=== PATIENT | female | born 1950 | race Caucasian/White ===

== ENCOUNTER 2021-04-29 08:52 | Inpatient (IN) | payer MEDICARE ==
[~2021-04-29 08:52] MED LIST: Rocuronium Bromide 10 MG/ML (10ML VIAL) ONE
[2021-04-29] MEDS ORDERED: Fentanyl 100 MCG/2 ML VIAL ONE ×2 (09:01→10:30)
[2021-04-29] MEDS ORDERED: Norepinephrine 8 MG/0.9% NS 250 ML ONE ×2 (09:12→17:13)
[2021-04-29 10:13] LABS: SARS-CoV-2 NAA Rapid Test Not Detected (NotDetected)
[2021-04-29 10:15] LABS: Hemoglobin 12.3 g/dL (12.0-15.5); Mean Corpuscular HGB CONC 30.2 g/dL (32.0-36.0); Mean Corpuscular Hemoglobin 28.6 pg (27.0-33.0); Mean Corpuscular Volume 94.7 fl (81.6-98.3); Mean Platelet Volume 10.4 fl (7.4-10.4); Platelet Count 324 10x3/uL (150-450); RBC Distribution Width 14.7 % (11.5-14.5); White Blood Cell (WBC) Count 25.8 10x3/uL (3.5-10.5)
[2021-04-29] MEDS ORDERED: Cefepime 2 GM VIAL ONE (10:23)
[2021-04-29 10:26] LABS: INR-International Normal Ratio 1.1; PTT 28.7 sec (22.0-33.0); Prothrombin Time 12.1 sec (9.5-12.1)
[2021-04-29 10:29] LABS: ALT (SGPT) 141 U/L (8-55); AST (SGOT) 243 U/L (5-34); Albumin 2.6 g/dL (3.4-4.8); Alkaline Phosphatase 148 U/L (40-110); Anion Gap 18 mmol/L (10-20); BUN (Urea Nitrogen) 21 mg/dL (9.8-20.1); Bilirubin, Total 0.6 mg/dL (0.2-1.2); Calc. Creatinine Clearance 0 mL/min (70-130); Calcium 9.1 mg/dL (7.8-10.44); Carbon Dioxide 20 mmol/L (23-31); Chloride 105 mmol/L (98-107); Globulin 3.1 g/dL (2.4-3.5); Glucose 239 mg/dL (83-110); Potassium 4.8 mmol/L (3.5-5.1); Protein, Total 5.7 g/dL (5.8-8.1); Sodium 138 mmol/L (136-145)
[2021-04-29] MEDS ORDERED: VANCOMYCIN 2 GRAM/400 ML BAG 2 GM in Premix Bag 1 BAG IVPB SCH (11:00)
[2021-04-29 11:04] LABS: MDiff Complete? YES
[2021-04-29 11:07] LABS: Band 6 % (5-11); Lymphocytes 22 % (21-51); Monocytes 5 % (0-10); Neutrophil 67 % (42-75)
[2021-04-29 11:08] LABS: Platelet Morphology Comment Appears Adequate; RBC Morphology Normal
[2021-04-29 11:43] LABS: Magnesium 2.2 mg/dL (1.6-2.6)
[2021-04-29 12:16] LABS: Actual Bicarbonate (HCO3a) 20.2 mEq/L (22-28); Base Excess (BEa) -7.9 mEq/L (-2.0 to +3.0); CO2 Tension 51.4 mmHg (35.0-45.0); Calcium, Ionized (arterial) 1.26 mmol/L (1.12-1.30); Carboxyhemoglobin (COHb) 0.1 gm% (0.0-3.0); Hemoglobin (Hb) 13.7 g/dL (12.0-16.0); O2 Tension (PaO2), arterial 141.7 mmHg (> 70.0); Potassium - ABG Lab 4.6 mmol/L (3.70-5.30); Puncture Site RRA; pH, Arterial 7.21 (7.35-7.45)
[2021-04-29] MEDS: Amiodarone In Dextrose 360 MG in Premix Bag 1 BAG IVPB SCH ×2 (12:54→18:29)
[2021-04-29] MEDS ORDERED: Ventilator Sedation Protocol 1 EACH FS PRN (13:00)
[2021-04-29] MEDS ORDERED: Electrolyte Replacement Protocol 1 EACH IVPB PRN (13:00)
[2021-04-29] MEDS ORDERED: DISCONTINUE PREVIOUS NARCOTIC PAIN MEDICATIONS AND BENZODIAZEPINES FS SCH (13:15)
[2021-04-29] MEDS ORDERED: Fentanyl BOLUS 250 ML IVPB PRN (13:15)
[2021-04-29] MEDS ORDERED: Propofol 1,000 MG/100 ML VIAL IV PRN (13:15)
[2021-04-29] MEDS ORDERED: Propofol BOLUS 1,000 MG/100 ML VIAL IV PRN (13:15)
[2021-04-29] MEDS ORDERED: Lorazepam 2 MG/ML VIAL SLOW IVP PRN (13:15)
[2021-04-29] MEDS ORDERED: Morphine 2 MG/ML VIAL SLOW IVP PRN (13:15)
[2021-04-29 13:30] LABS: Lactic Acid 2.3 mmol/L (0.5-2.2)
[2021-04-29] MEDS: fentaNYL Citrate-0.9 % NaCl/PF 100 ML IVPB SCH (13:30)
[2021-04-29 13:44] LABS: Troponin I 0.654 ng/mL (< 0.028)
[2021-04-29 14:56] LABS: Free T4 (Free Thyroxine) 0.89 ng/dL (0.70-1.48); Thyroid Stimulating Hormone 2.7725 uIU/mL (0.35-4.94)
[2021-04-29] MEDS ORDERED: EPINEPHrine 1 MG/10 ML Abboject SYRINGE ONE (14:56)
[2021-04-29] MEDS ORDERED: Amiodarone 150 MG/3 ML VIAL ONE (14:56)
[2021-04-29] MEDS ORDERED: Calcium Chloride 1 GM/10 ML Abboject SYRINGE ONE (14:56)
[2021-04-29] MEDS ORDERED: Aspirin Chewable 81 MG TAB PER TUBE SCH (15:00)
[2021-04-29] MEDS ORDERED: Piperacillin/Tazobactam 3.375 GM in Sodium Chloride 0.9% 100 ML IVPB SCH (16:00)
[2021-04-29] MEDS ORDERED: Lactated Ringer's 1,000 ML IV SCH ×2 (17:30)
[2021-04-29 17:59] LABS: Bilirubin Neg (Negative); Blood, Urine 250 (Negative); Clarity Slightly Cloudy (Clear); Glucose, Urine (Dipstick) 50 mg/dL (Negative); Ketone, Urine Negative (Negative); Leukocyte 100 (Negative); Nitrite Negative (Negative); Protein, Urine (Dipstick) 100 mg/dl (Neg-Trace); Specific Gravity, Urine 1.015 (1.002-1.036); Urobilinogen Normal mg/dL (Less than 2)
[2021-04-29 18:06] LABS: Urine Culture Reflex No No
[2021-04-29 18:07] LABS: Amphetamine Not Detected (NotDetected); Barbiturates Screen Not Detected (NotDetected); Benzodiazepine Screen Not Detected (NotDetected); Cocaine Metabolite Screen Not Detected (NotDetected); Methadone Not Detected (NotDetected); Methamphetamine Not Detected (NotDetected); Opiate Screen Not Detected (NotDetected); Oxycodone Screen Not Detected (NotDetected); Phencyclidine (PCP) Not Detected (NotDetected); THC/Cannabinoid Screen Not Detected (NotDetected); Tricyclic Screen Not Detected (NotDetected)
[2021-04-29 18:31] LABS: Squamous Epithelial 0-3 HPF (0-3)
[2021-04-29 18:34] LABS: Bacteria/HPF Rare-Few HPF (None Seen)
[2021-04-29] MEDS ORDERED: Heparin 10,000 UNITS/ 10 ML VIAL SLOW IVP SCH (19:00)
[2021-04-29] MEDS ORDERED: Famotidine/PF 20 mg/2ml Vial SLOW IVP SCH (21:00)
[2021-04-29] MEDS: Piperacillin/Tazobactam 3.375 GM in Sodium Chloride 0.9% 100 ML IVPB SCH (21:04)
[2021-04-29 21:40] LABS: Hemoglobin 13.3 g/dL (12.0-15.5); Platelet Count 362 10x3/uL (150-450)
[2021-04-29] MEDS ORDERED: Piperacillin/Tazobactam 4.5 GM in Sodium Chloride 0.9% 100 ML IVPB SCH (22:00)
[2021-04-29] MEDS: Heparin 25,000 units/D5W 500 ML IVPB SCH (22:21)
[2021-04-30 03:07] LABS: PTT Greater than 139.0 sec (22.0-33.0)
[2021-04-30 03:34] LABS: #Neutrophils 15.8 10x3/uL (1.5-8.4); %Basophils 0.1 % (0.0-2.0); %Lymphocytes 5.7 % (18.0-47.0); %Monocytes 5.4 % (0.0-10.0); %Neutrophils 88.4 % (40.0-75.0); Hemoglobin 13.1 g/dL (12.0-15.5); Mean Corpuscular HGB CONC 30.8 g/dL (32.0-36.0); Mean Corpuscular Hemoglobin 28.2 pg (27.0-33.0); Mean Corpuscular Volume 91.6 fl (81.6-98.3); Mean Platelet Volume 10.2 fl (7.4-10.4); Platelet Count 358 10x3/uL (150-450); RBC Distribution Width 14.9 % (11.5-14.5); Red Blood Cell (RBC) Count 4.65 10x6/uL (3.90-5.03); White Blood Cell (WBC) Count 17.9 10x3/uL (3.5-10.5)
[2021-04-30 03:57] LABS: ALT (SGPT) 158 U/L (8-55); AST (SGOT) 139 U/L (5-34); Albumin 2.8 g/dL (3.4-4.8); Alkaline Phosphatase 170 U/L (40-110); Anion Gap 21 mmol/L (10-20); BUN (Urea Nitrogen) 40 mg/dL (9.8-20.1); Bilirubin, Total 0.7 mg/dL (0.2-1.2); Calc. Creatinine Clearance 42 mL/min (70-130); Calcium 8.1 mg/dL (7.8-10.44); Carbon Dioxide 20 mmol/L (23-31); Cardiac Risk 2.9 (Less than 4.5); Chloride 105 mmol/L (98-107); Cholesterol 96 mg/dl (< 200 Desired); Globulin 3.2 g/dL (2.4-3.5); Glucose 193 mg/dL (83-110); HDL Cholesterol 33 mg/dL (>60 Neg Risk); LDL Cholesterol, Calculated 48 mg/dL; Magnesium 2.1 mg/dL (1.6-2.6); Phosphorus 6.1 mg/dL (2.3-4.7); Potassium 5.6 mmol/L (3.5-5.1); Sodium 140 mmol/L (136-145); Triglycerides 73 mg/dL (Less than 150)
[2021-04-30] MEDS: Piperacillin/Tazobactam 3.375 GM in Sodium Chloride 0.9% 100 ML IVPB SCH (05:12)
[2021-04-30] MEDS: Amiodarone In Dextrose 360 MG in Premix Bag 1 BAG IVPB SCH ×2 (05:42→16:33)
[2021-04-30] MEDS: fentaNYL Citrate-0.9 % NaCl/PF 100 ML IVPB SCH (05:42)
[2021-04-30] MEDS: Norepinephrine 8 MG/0.9% NS 250 ML IVPB SCH ×2 (06:27→16:32)
[2021-04-30 08:15] LABS: Actual Bicarbonate (HCO3a) 21.2 mEq/L (22-28); CO2 Tension 48.1 mmHg (35.0-45.0); Carboxyhemoglobin (COHb) 0.4 gm% (0.0-3.0); Hemoglobin (Hb) 13.9 g/dL (12.0-16.0); O2 Tension (PaO2), arterial 81.8 mmHg (> 70.0); Puncture Site LBA; pH, Arterial 7.26 (7.35-7.45)
[2021-04-30 08:19] LABS: ALV-art Gradient 107.625 mmHg (0-20)
[2021-04-30] MEDS ORDERED: Aspirin Chewable 81 MG TAB PER TUBE SCH (09:00)
[2021-04-30] MEDS ORDERED: Albumin 25% 25 GM/100 ML BOT IVPB SCH (09:00)
[2021-04-30] MEDS ORDERED: Sodium Chloride 0.9% 1,000 ML IV SCH (11:00)
[2021-04-30 11:27] LABS: Hemoglobin A1c 5.4 % (4.0-6.0)
[2021-04-30 12:17] LABS: Anion Gap 18 mmol/L (10-20); BUN (Urea Nitrogen) 43 mg/dL (9.8-20.1); Calc. Creatinine Clearance 36 mL/min (70-130); Calcium 7.8 mg/dL (7.8-10.44); Carbon Dioxide 21 mmol/L (23-31); Chloride 104 mmol/L (98-107); Glucose 158 mg/dL (83-110); Potassium 4.8 mmol/L (3.5-5.1); Sodium 138 mmol/L (136-145)
[2021-04-30] MEDS ORDERED: Lactated Ringer's 1,000 ML IV SCH (12:30)
[2021-04-30 12:36] LABS: Troponin I 0.471 ng/mL (< 0.028)
[2021-04-30] MEDS ORDERED: Heparin 10,000 UNITS/ 10 ML VIAL SLOW IVP PRN (12:45)
[2021-04-30] MEDS: Sodium Chloride 0.45% 1,000 ML IV SCH (13:30)
[2021-04-30] MEDS: Cefepime 2 GM in Sodium Chloride 0.9% 100 ML IVPB SCH (14:52)
[2021-04-30] MEDS: Heparin 25,000 units/D5W 500 ML IVPB SCH (18:28)
[2021-04-30 18:44] LABS: PTT Greater than 139.0 sec (22.0-33.0)
[2021-04-30] MEDS: Famotidine/PF 20 mg/2ml Vial SLOW IVP SCH (20:15)
[2021-04-30] MEDS ORDERED: Acetaminophen 325 MG TAB PO PRN (21:40)
[2021-04-30] MEDS ORDERED: traMADol HCl 50 MG TAB PO PRN (21:40)
[2021-04-30] MEDS ORDERED: Morphine 4 MG/ML VIAL SLOW IVP SCH (22:45)
[2021-05-01 04:00] LABS: Troponin I 0.203 ng/mL (< 0.028)
[2021-05-01 04:20] LABS: ALT (SGPT) 86 U/L (8-55); AST (SGOT) 42 U/L (5-34); Alkaline Phosphatase 106 U/L (40-110); Anion Gap 18 mmol/L (10-20); BUN (Urea Nitrogen) 47 mg/dL (9.8-20.1); Bilirubin, Total 0.5 mg/dL (0.2-1.2); Calc. Creatinine Clearance 34 mL/min (70-130); Calcium 7.4 mg/dL (7.8-10.44); Carbon Dioxide 19 mmol/L (23-31); Chloride 108 mmol/L (98-107); Globulin 2.1 g/dL (2.4-3.5); Glucose 122 mg/dL (83-110); Magnesium 2.1 mg/dL (1.6-2.6); Phosphorus 6.6 mg/dL (2.3-4.7); Potassium 4.8 mmol/L (3.5-5.1); Protein, Total 5.1 g/dL (5.8-8.1); Sodium 140 mmol/L (136-145)
[2021-05-01 04:25] LABS: #Neutrophils 12.7 10x3/uL (1.5-8.4); %Basophils 0.1 % (0.0-2.0); %Lymphocytes 6.5 % (18.0-47.0); %Monocytes 6.6 % (0.0-10.0); %Neutrophils 86.3 % (40.0-75.0); Hemoglobin 10.3 g/dL (12.0-15.5); Mean Corpuscular HGB CONC 30.7 g/dL (32.0-36.0); Mean Corpuscular Hemoglobin 28.8 pg (27.0-33.0); Mean Corpuscular Volume 93.9 fl (81.6-98.3); Mean Platelet Volume 11.3 fl (7.4-10.4); Platelet Count 190 10x3/uL (150-450); RBC Distribution Width 14.9 % (11.5-14.5); Red Blood Cell (RBC) Count 3.58 10x6/uL (3.90-5.03); White Blood Cell (WBC) Count 14.7 10x3/uL (3.5-10.5)
[2021-05-01] MEDS: Amiodarone In Dextrose 360 MG in Premix Bag 1 BAG IVPB SCH (05:27)
[2021-05-01] MEDS ORDERED: Albumin 25% 25 GM/100 ML BOT IVPB SCH (09:00)
[2021-05-01] MEDS: Lidocaine 5% Patch TD SCH (10:22)
[2021-05-01] MEDS: guaiFENesin ER 600 MG TAB PO SCH ×2 (10:22→21:46)
[2021-05-01] MEDS: Aspirin Chewable 81 MG TAB PO SCH (10:22)
[2021-05-01] MEDS: Sodium Chloride 0.45% 1,000 ML IV SCH ×3 (10:30→20:01)
[2021-05-01 10:55] LABS: PTT 71.2 sec (22.0-33.0)
[2021-05-01] MEDS: Cefepime 2 GM in Sodium Chloride 0.9% 100 ML IVPB SCH (14:59)
[2021-05-01] MEDS: Amiodarone 200 MG TAB PO SCH (21:20)
[2021-05-01] MEDS: Heparin 5,000 UNITS/ML VIAL SC SCH (21:47)
[2021-05-01] MEDS: Famotidine/PF 20 mg/2ml Vial SLOW IVP SCH (21:48)
[2021-05-01] MEDS: Transdermal Patch Removal TOP SCH (21:48)
[2021-05-01] MEDS ORDERED: Digoxin 0.5 MG/2 ML AMP SLOW IVP SCH (22:45)
[2021-05-02 03:41] LABS: ALT (SGPT) 61 U/L (8-55); AST (SGOT) 24 U/L (5-34); Albumin 3.1 g/dL (3.4-4.8); Alkaline Phosphatase 93 U/L (40-110); Anion Gap 15 mmol/L (10-20); BUN (Urea Nitrogen) 50 mg/dL (9.8-20.1); Bilirubin, Total 0.6 mg/dL (0.2-1.2); Calc. Creatinine Clearance 33 mL/min (70-130); Calcium 8.2 mg/dL (7.8-10.44); Carbon Dioxide 22 mmol/L (23-31); Chloride 108 mmol/L (98-107); Globulin 2.6 g/dL (2.4-3.5); Glucose 102 mg/dL (83-110); Magnesium 2.2 mg/dL (1.6-2.6); Phosphorus 5.6 mg/dL (2.3-4.7); Potassium 4.6 mmol/L (3.5-5.1); Protein, Total 5.7 g/dL (5.8-8.1); Sodium 140 mmol/L (136-145)
[2021-05-02 03:50] LABS: #Monocytes 0.8 10x3/uL (0.0-1.1); #Neutrophils 9.3 10x3/uL (1.5-8.4); %Lymphocytes 5.7 % (18.0-47.0); %Monocytes 7.1 % (0.0-10.0); %Neutrophils 86.6 % (40.0-75.0); Hemoglobin 9.7 g/dL (12.0-15.5); Mean Corpuscular HGB CONC 30.6 g/dL (32.0-36.0); Mean Corpuscular Hemoglobin 28.6 pg (27.0-33.0); Mean Corpuscular Volume 93.5 fl (81.6-98.3); Mean Platelet Volume 10.9 fl (7.4-10.4); Platelet Count 136 10x3/uL (150-450); RBC Distribution Width 15.2 % (11.5-14.5); Red Blood Cell (RBC) Count 3.39 10x6/uL (3.90-5.03); White Blood Cell (WBC) Count 10.9 10x3/uL (3.5-10.5)
[2021-05-02] MEDS: Heparin 5,000 UNITS/ML VIAL SC SCH ×3 (05:00→22:21)
[2021-05-02] MEDS: Aspirin Chewable 81 MG TAB PO SCH (08:26)
[2021-05-02] MEDS: Amiodarone 200 MG TAB PO SCH ×2 (08:26→21:20)
[2021-05-02] MEDS: guaiFENesin ER 600 MG TAB PO SCH ×2 (08:26→21:21)
[2021-05-02] MEDS: Lidocaine 5% Patch TD SCH (08:26)
[2021-05-02] MEDS ORDERED: Amoxicillin/Potassium Clav 875 MG TAB PO SCH (09:30)
[2021-05-02] MEDS: FLU VACC QS2021-22(65YR UP)/PF 240 MCG/0.7 ML SYRINGE IM ONE (09:58)
[2021-05-02] MEDS: Sodium Chloride 0.45% 1,000 ML IV SCH (09:59)
[2021-05-02] MEDS: Cefepime 2 GM in Sodium Chloride 0.9% 100 ML IVPB SCH (09:59)
[2021-05-02 10:18] LABS: Bilirubin Neg (Negative); Blood, Urine 250 (Negative); Clarity Slightly Cloudy (Clear); Glucose, Urine (Dipstick) Normal (Negative); Ketone, Urine Negative (Negative); Leukocyte Negative (Negative); Nitrite Negative (Negative); Protein, Urine (Dipstick) 30 mg/dl (Neg-Trace); Urobilinogen Normal mg/dL (Less than 2)
[2021-05-02 11:15] LABS: Bacteria/HPF Rare-Few HPF (None Seen); RBC/HPF 21-50 HPF (0-3); Squamous Epithelial 0-3 HPF (0-3); WBC/HPF 0-3 HPF (0-3)
[2021-05-02] MEDS ORDERED: Metoprolol Tartrate 25 MG TAB PO SCH (12:00)
[2021-05-02] MEDS ORDERED: Digoxin 0.5 MG/2 ML AMP ONE (14:19)
[2021-05-02] MEDS ORDERED: Furosemide 40 MG/4 ML VIAL ONE (14:20)
[2021-05-02] MEDS ORDERED: Digoxin 0.5 MG/2 ML AMP SLOW IVP SCH (14:30)
[2021-05-02] MEDS ORDERED: Furosemide 20 MG/2 ML VIAL SLOW IVP SCH (14:30)
[2021-05-02] MEDS ORDERED: guaiFENesin ER 600 MG TAB ONE (21:19)
[2021-05-02] MEDS: Metoprolol Tartrate 25 MG TAB PO SCH (21:20)
[2021-05-02] MEDS: Transdermal Patch Removal TOP SCH (21:21)
[2021-05-02] MEDS: Famotidine/PF 20 mg/2ml Vial SLOW IVP SCH (21:21)
[2021-05-02] MEDS: Amoxicillin/Potassium Clav 875 MG TAB PO SCH (21:23)
[2021-05-03 05:06] LABS: #Monocytes 1.1 10x3/uL (0.0-1.1); #Neutrophils 9.7 10x3/uL (1.5-8.4); %Basophils 0.2 % (0.0-2.0); %Lymphocytes 5.7 % (18.0-47.0); %Monocytes 9.7 % (0.0-10.0); %Neutrophils 83.4 % (40.0-75.0); Hemoglobin 10.2 g/dL (12.0-15.5); Mean Corpuscular HGB CONC 29.9 g/dL (32.0-36.0); Mean Corpuscular Hemoglobin 28.8 pg (27.0-33.0); Mean Corpuscular Volume 96.3 fl (81.6-98.3); Mean Platelet Volume 11.7 fl (7.4-10.4); Platelet Count 167 10x3/uL (150-450); RBC Distribution Width 15.4 % (11.5-14.5); Red Blood Cell (RBC) Count 3.54 10x6/uL (3.90-5.03); White Blood Cell (WBC) Count 11.6 10x3/uL (3.5-10.5)
[2021-05-03 05:30] LABS: ALT (SGPT) 49 U/L (8-55); AST (SGOT) 15 U/L (5-34); Albumin 3.3 g/dL (3.4-4.8); Alkaline Phosphatase 104 U/L (40-110); Anion Gap 13 mmol/L (10-20); BUN (Urea Nitrogen) 54 mg/dL (9.8-20.1); Bilirubin, Total 0.7 mg/dL (0.2-1.2); Calc. Creatinine Clearance 34 mL/min (70-130); Calcium 8.4 mg/dL (7.8-10.44); Carbon Dioxide 24 mmol/L (23-31); Chloride 109 mmol/L (98-107); Globulin 2.7 g/dL (2.4-3.5); Glucose 110 mg/dL (83-110); Magnesium 2.4 mg/dL (1.6-2.6); Potassium 4.6 mmol/L (3.5-5.1); Sodium 141 mmol/L (136-145)
[2021-05-03] MEDS ORDERED: Furosemide 100 MG/10 ML VIAL SLOW IVP SCH (08:30)
[2021-05-03] MEDS ORDERED: Digoxin 0.5 MG/2 ML AMP SLOW IVP SCH (08:30)
[2021-05-03] MEDS: Amiodarone 200 MG TAB PO SCH (08:50)
[2021-05-03] MEDS: Amoxicillin/Potassium Clav 875 MG TAB PO SCH (08:51)
[2021-05-03] MEDS: Metoprolol Tartrate 25 MG TAB PO SCH (09:11)
[2021-05-03] MEDS: Lidocaine 5% Patch TD SCH (09:14)
[2021-05-03] MEDS: Aspirin Chewable 81 MG TAB PO SCH (09:15)
[2021-05-03] MEDS ORDERED: Amiodarone 450 MG in Dextrose 5% in Water 250 ML IVPB SCH (09:15)
[2021-05-03] MEDS: guaiFENesin ER 600 MG TAB PO SCH ×2 (09:15→20:24)
[2021-05-03] MEDS: Heparin 5,000 UNITS/ML VIAL SC SCH ×3 (09:17→20:55)
[2021-05-03] MEDS ORDERED: Amiodarone In Dextrose 150 MG in Premix Bag 1 BAG IVPB SCH (09:30)
[2021-05-03] MEDS ORDERED: Pantoprazole 40 MG VIAL IVP SCH (10:45)
[2021-05-03] MEDS: Amiodarone In Dextrose 200 ML IVPB SCH ×3 (11:32→23:17)
[2021-05-03] MEDS: Ampicillin/Sulbactam 1.5 GM in Sodium Chloride 0.9% 100 ML IVPB SCH ×2 (11:34→21:13)
[2021-05-03 11:53] LABS: Actual Bicarbonate (HCO3a) 24.3 mEq/L (22-28); Base Excess (BEa) -3.6 mEq/L (-2.0 to +3.0); CO2 Tension 57.8 mmHg (35.0-45.0); Carboxyhemoglobin (COHb) 0.5 gm% (0.0-3.0); Hemoglobin (Hb) 11.3 g/dL (12.0-16.0); O2 Tension (PaO2), arterial 120.4 mmHg (> 70.0); Potassium - ABG Lab 4.5 mmol/L (3.70-5.30); Puncture Site RRA; pH, Arterial 7.24 (7.35-7.45)
[2021-05-03 17:07] LABS: Strep pneumo Urine Ag NEGATIVE (NEGATIVE)
[2021-05-03] MEDS: Transdermal Patch Removal TOP SCH (20:24)
[2021-05-03] MEDS: Metoprolol Tartrate 5 MG/5 ML VIAL IVP SCH (20:55)
[2021-05-04 04:59] LABS: #Neutrophils 6.7 10x3/uL (1.5-8.4); %Basophils 0.1 % (0.0-2.0); %Lymphocytes 6.6 % (18.0-47.0); %Monocytes 11.9 % (0.0-10.0); %Neutrophils 80.7 % (40.0-75.0); Hemoglobin 9.7 g/dL (12.0-15.5); Mean Corpuscular HGB CONC 30.1 g/dL (32.0-36.0); Mean Corpuscular Hemoglobin 28.4 pg (27.0-33.0); Mean Corpuscular Volume 94.2 fl (81.6-98.3); Mean Platelet Volume 11.5 fl (7.4-10.4); Platelet Count 145 10x3/uL (150-450); RBC Distribution Width 15.4 % (11.5-14.5); Red Blood Cell (RBC) Count 3.42 10x6/uL (3.90-5.03); White Blood Cell (WBC) Count 8.2 10x3/uL (3.5-10.5)
[2021-05-04 05:25] LABS: ALT (SGPT) 36 U/L (8-55); AST (SGOT) 10 U/L (5-34); Albumin 3.1 g/dL (3.4-4.8); Alkaline Phosphatase 93 U/L (40-110); Anion Gap 12 mmol/L (10-20); BUN (Urea Nitrogen) 50 mg/dL (9.8-20.1); Bilirubin, Total 0.6 mg/dL (0.2-1.2); Calc. Creatinine Clearance 48 mL/min (70-130); Calcium 8.5 mg/dL (7.8-10.44); Carbon Dioxide 25 mmol/L (23-31); Chloride 109 mmol/L (98-107); Globulin 2.6 g/dL (2.4-3.5); Glucose 103 mg/dL (83-110); Magnesium 2.4 mg/dL (1.6-2.6); Phosphorus 3.1 mg/dL (2.3-4.7); Protein, Total 5.7 g/dL (5.8-8.1); Sodium 142 mmol/L (136-145)
[2021-05-04 08:36] LABS: Actual Bicarbonate (HCO3a) 25.5 mEq/L (22-28); Base Excess (BEa) -0.5 mEq/L (-2.0 to +3.0); CO2 Tension 47.6 mmHg (35.0-45.0); Carboxyhemoglobin (COHb) 0.3 gm% (0.0-3.0); Hemoglobin (Hb) 11.1 g/dL (12.0-16.0); O2 Tension (PaO2), arterial 87.3 mmHg (> 70.0); Potassium - ABG Lab 4.1 mmol/L (3.70-5.30); Puncture Site RRA; pH, Arterial 7.35 (7.35-7.45)
[2021-05-04] MEDS ORDERED: Pantoprazole 40 MG VIAL IVP SCH (09:30)
[2021-05-04] MEDS: Metoprolol Tartrate 5 MG/5 ML VIAL IVP SCH ×2 (09:33→21:41)
[2021-05-04] MEDS: Lidocaine 5% Patch TD SCH (09:38)
[2021-05-04] MEDS: Heparin 5,000 UNITS/ML VIAL SC SCH ×3 (09:38→21:42)
[2021-05-04] MEDS: guaiFENesin ER 600 MG TAB PO SCH ×2 (09:39→21:18)
[2021-05-04] MEDS: Aspirin Chewable 81 MG TAB PO SCH (09:39)
[2021-05-04] MEDS: Pantoprazole 40 MG VIAL IVP SCH ×2 (09:50→09:53)
[2021-05-04] MEDS: Ampicillin/Sulbactam 1.5 GM in Sodium Chloride 0.9% 100 ML IVPB SCH ×3 (10:00→21:41)
[2021-05-04] MEDS ORDERED: Albumin 25% 25 GM/100 ML BOT IVPB SCH (10:00)
[2021-05-04] MEDS ORDERED: Furosemide 100 MG/10 ML VIAL SLOW IVP SCH (10:00)
[2021-05-04] MEDS: Amiodarone In Dextrose 200 ML IVPB SCH ×2 (10:24→21:42)
[2021-05-04] MEDS: Transdermal Patch Removal TOP SCH (21:43)
[2021-05-05 03:57] LABS: Hemoglobin 8.7 g/dL (12.0-15.5); Mean Corpuscular HGB CONC 30.6 g/dL (32.0-36.0); Mean Corpuscular Hemoglobin 28.5 pg (27.0-33.0); Mean Corpuscular Volume 93.1 fl (81.6-98.3); Mean Platelet Volume 11.2 fl (7.4-10.4); RBC Distribution Width 15.7 % (11.5-14.5); Red Blood Cell (RBC) Count 3.05 10x6/uL (3.90-5.03); White Blood Cell (WBC) Count 6.2 10x3/uL (3.5-10.5)
[2021-05-05 03:58] LABS: Platelet Count 130 10x3/uL (150-450)
[2021-05-05] MEDS: Ampicillin/Sulbactam 1.5 GM in Sodium Chloride 0.9% 100 ML IVPB SCH ×4 (03:58→21:30)
[2021-05-05 04:00] LABS: #Monocytes 0.8 10x3/uL (0.0-1.1); #Neutrophils 4.7 10x3/uL (1.5-8.4); %Basophils 0.2 % (0.0-2.0); %Eosinophils 0.2 % (0.0-6.0); %Lymphocytes 9.8 % (18.0-47.0); %Monocytes 12.8 % (0.0-10.0); %Neutrophils 76.3 % (40.0-75.0)
[2021-05-05 04:19] LABS: ALT (SGPT) 25 U/L (8-55); AST (SGOT) 11 U/L (5-34); Alkaline Phosphatase 78 U/L (40-110); Anion Gap 13 mmol/L (10-20); BUN (Urea Nitrogen) 42 mg/dL (9.8-20.1); Bilirubin, Total 0.7 mg/dL (0.2-1.2); Calc. Creatinine Clearance 69 mL/min (70-130); Calcium 8.1 mg/dL (7.8-10.44); Carbon Dioxide 24 mmol/L (23-31); Globulin 2.2 g/dL (2.4-3.5); Glucose 93 mg/dL (83-110); Magnesium 2.1 mg/dL (1.6-2.6); Phosphorus 2.7 mg/dL (2.3-4.7); Potassium 3.7 mmol/L (3.5-5.1); Protein, Total 5.2 g/dL (5.8-8.1); Sodium 147 mmol/L (136-145)
[2021-05-05 04:33] LABS: Chloride 114 mmol/L (98-107)
[2021-05-05 07:16] LABS: Platelet Morphology Comment Appears Adequate; RBC Morphology Normal
[2021-05-05] MEDS: Aspirin Chewable 81 MG TAB PO SCH ×2 (09:08→10:20)
[2021-05-05] MEDS: guaiFENesin ER 600 MG TAB PO SCH ×3 (09:09→19:49)
[2021-05-05] MEDS: Aspirin 300 MG Suppository PR SCH ×2 (09:25→10:20)
[2021-05-05] MEDS: Metoprolol Tartrate 5 MG/5 ML VIAL IVP SCH ×2 (09:25→20:29)
[2021-05-05] MEDS: Lidocaine 5% Patch TD SCH (09:26)
[2021-05-05] MEDS: Heparin 5,000 UNITS/ML VIAL SC SCH ×3 (09:27→20:28)
[2021-05-05] MEDS ORDERED: Potassium Chloride 20 MEQ TAB PO SCH (09:45)
[2021-05-05] MEDS: Amiodarone In Dextrose 200 ML IVPB SCH ×2 (11:12→23:34)
[2021-05-05] MEDS: Transdermal Patch Removal TOP SCH (20:45)
[2021-05-06 03:43] LABS: #Monocytes 0.9 10x3/uL (0.0-1.1); #Neutrophils 7.1 10x3/uL (1.5-8.4); %Lymphocytes 8.5 % (18.0-47.0); %Monocytes 10.3 % (0.0-10.0); %Neutrophils 80.6 % (40.0-75.0); Hemoglobin 10.5 g/dL (12.0-15.5); Mean Corpuscular HGB CONC 30.5 g/dL (32.0-36.0); Mean Corpuscular Hemoglobin 28.7 pg (27.0-33.0); Mean Platelet Volume 10.6 fl (7.4-10.4); Platelet Count 155 10x3/uL (150-450); RBC Distribution Width 16.2 % (11.5-14.5); Red Blood Cell (RBC) Count 3.66 10x6/uL (3.90-5.03); White Blood Cell (WBC) Count 8.8 10x3/uL (3.5-10.5)
[2021-05-06 03:57] LABS: ALT (SGPT) 22 U/L (8-55); AST (SGOT) 9 U/L (5-34); Albumin 3.1 g/dL (3.4-4.8); Alkaline Phosphatase 81 U/L (40-110); Anion Gap 14 mmol/L (10-20); BUN (Urea Nitrogen) 37 mg/dL (9.8-20.1); Bilirubin, Total 0.8 mg/dL (0.2-1.2); Calc. Creatinine Clearance 79 mL/min (70-130); Calcium 8.6 mg/dL (7.8-10.44); Carbon Dioxide 26 mmol/L (23-31); Chloride 114 mmol/L (98-107); Globulin 2.3 g/dL (2.4-3.5); Glucose 92 mg/dL (83-110); Magnesium 2.2 mg/dL (1.6-2.6); Phosphorus 2.9 mg/dL (2.3-4.7); Potassium 4.6 mmol/L (3.5-5.1); Protein, Total 5.4 g/dL (5.8-8.1); Sodium 149 mmol/L (136-145)
[2021-05-06] MEDS: Ampicillin/Sulbactam 1.5 GM in Sodium Chloride 0.9% 100 ML IVPB SCH ×4 (04:07→22:06)
[2021-05-06] MEDS: Aspirin 300 MG Suppository PR SCH (08:29)
[2021-05-06] MEDS: Heparin 5,000 UNITS/ML VIAL SC SCH ×3 (08:30→20:05)
[2021-05-06] MEDS: Metoprolol Tartrate 5 MG/5 ML VIAL IVP SCH ×2 (08:30→17:14)
[2021-05-06] MEDS: Aspirin Chewable 81 MG TAB PO SCH (08:30)
[2021-05-06] MEDS: guaiFENesin ER 600 MG TAB PO SCH ×2 (08:30→20:05)
[2021-05-06] MEDS: Pantoprazole 40 MG VIAL IVP SCH (08:31)
[2021-05-06] MEDS: Lidocaine 5% Patch TD SCH (08:36)
[2021-05-06] MEDS ORDERED: Heparin 10,000 UNITS/ 10 ML VIAL ONE (08:49)
[2021-05-06] MEDS ORDERED: Nitroglycerin 50 MG/250 ML BOT 0 ML ONE (08:49)
[2021-05-06] MEDS ORDERED: Adenosine 6 MG/2 ML VIAL ONE (08:49)
[2021-05-06] MEDS ORDERED: Lidocaine 1% (PF) 30 ML VIAL ONE (08:49)
[2021-05-06] MEDS ORDERED: Sodium Chloride 0.9% 1,000 ML ONE (08:50)
[2021-05-06] MEDS: Amiodarone In Dextrose 200 ML IVPB SCH (09:24)
[2021-05-06] MEDS: Transdermal Patch Removal TOP SCH (20:28)
[2021-05-07] MEDS: Metoprolol Tartrate 5 MG/5 ML VIAL IVP SCH ×4 (01:00→20:12)
[2021-05-07] MEDS: Amiodarone In Dextrose 200 ML IVPB SCH ×2 (02:42→07:59)
[2021-05-07] MEDS: Ampicillin/Sulbactam 1.5 GM in Sodium Chloride 0.9% 100 ML IVPB SCH ×4 (03:26→21:00)
[2021-05-07 04:01] LABS: #Monocytes 0.7 10x3/uL (0.0-1.1); #Neutrophils 6.4 10x3/uL (1.5-8.4); %Basophils 0.1 % (0.0-2.0); %Lymphocytes 9.8 % (18.0-47.0); %Monocytes 8.9 % (0.0-10.0); Hemoglobin 10.7 g/dL (12.0-15.5); Mean Corpuscular HGB CONC 29.8 g/dL (32.0-36.0); Mean Corpuscular Hemoglobin 28.5 pg (27.0-33.0); Mean Corpuscular Volume 95.5 fl (81.6-98.3); Mean Platelet Volume 10.7 fl (7.4-10.4); Platelet Count 152 10x3/uL (150-450); RBC Distribution Width 16.5 % (11.5-14.5); Red Blood Cell (RBC) Count 3.76 10x6/uL (3.90-5.03); White Blood Cell (WBC) Count 8.1 10x3/uL (3.5-10.5)
[2021-05-07 04:19] LABS: Anion Gap 14 mmol/L (10-20); BUN (Urea Nitrogen) 33 mg/dL (9.8-20.1); Calc. Creatinine Clearance 91 mL/min (70-130); Calcium 8.5 mg/dL (7.8-10.44); Carbon Dioxide 26 mmol/L (23-31); Chloride 111 mmol/L (98-107); Glucose 87 mg/dL (83-110); Potassium 4.7 mmol/L (3.5-5.1); Sodium 146 mmol/L (136-145)
[2021-05-07] MEDS: Lidocaine 5% Patch TD SCH (07:55)
[2021-05-07] MEDS: Heparin 5,000 UNITS/ML VIAL SC SCH ×3 (08:00→20:12)
[2021-05-07] MEDS: Aspirin 300 MG Suppository PR SCH (08:00)
[2021-05-07] MEDS: Aspirin Chewable 81 MG TAB PO SCH (08:00)
[2021-05-07] MEDS: guaiFENesin ER 600 MG TAB PO SCH ×2 (08:00→20:03)
[2021-05-07] MEDS ORDERED: Midazolam HCl 2 mg/2 ml Vial SLOW IVP SCH (08:15)
[2021-05-07] MEDS ORDERED: Fentanyl 100 MCG/2 ML VIAL SLOW IVP SCH (08:15)
[2021-05-07] MEDS: Pantoprazole 40 MG VIAL IVP SCH (08:25)
[2021-05-07] MEDS ORDERED: Ventilator Sedation Protocol 1 EACH FS PRN (09:07)
[2021-05-07] MEDS ORDERED: Norepinephrine 8 MG/0.9% NS 250 ML ONE (09:09)
[2021-05-07] MEDS ORDERED: Norepinephrine 8 MG/0.9% NS 250 ML IVPB SCH (09:15)
[2021-05-07] MEDS ORDERED: Propofol 1,000 MG/100 ML VIAL IV ONE (09:17)
[2021-05-07] MEDS ORDERED: Morphine 2 MG/ML VIAL SLOW IVP PRN (09:30)
[2021-05-07] MEDS ORDERED: Fentanyl BOLUS 250 ML IVPB PRN (09:30)
[2021-05-07] MEDS ORDERED: DISCONTINUE PREVIOUS NARCOTIC PAIN MEDICATIONS AND BENZODIAZEPINES FS SCH (09:30)
[2021-05-07] MEDS ORDERED: fentaNYL Citrate-0.9 % NaCl/PF 100 ML IVPB SCH (09:30)
[2021-05-07] MEDS ORDERED: Lorazepam 2 MG/ML VIAL SLOW IVP PRN (09:30)
[2021-05-07] MEDS ORDERED: Propofol BOLUS 1,000 MG/100 ML VIAL IV PRN (09:30)
[2021-05-07 10:16] LABS: Actual Bicarbonate (HCO3a) 23.7 mEq/L (22-28); Base Excess (BEa) -1.3 mEq/L (-2.0 to +3.0); CO2 Tension 40.7 mmHg (35.0-45.0); Calcium, Ionized (arterial) 1.19 mmol/L (1.12-1.30); Carboxyhemoglobin (COHb) 0.3 gm% (0.0-3.0); Hemoglobin (Hb) 11.4 g/dL (12.0-16.0); O2 Tension (PaO2), arterial 149.3 mmHg (> 70.0); Potassium - ABG Lab 4.4 mmol/L (3.70-5.30); Puncture Site LRA; pH, Arterial 7.38 (7.35-7.45)
[2021-05-07 10:19] LABS: ALV-art Gradient 512.825 mmHg (0-20)
[2021-05-07] MEDS: Propofol 1,000 MG/100 ML VIAL IV PRN (12:33)
[2021-05-07] MEDS: Amino Acids 4.25 %/Dextrose 5% 2,000 ML IV SCH (14:00)
[2021-05-07 17:21] LABS: SARS-CoV-2 PCR by NAA Not Detected (NotDetected)
[2021-05-07] MEDS: Transdermal Patch Removal TOP SCH (19:51)
[2021-05-08] MEDS: Propofol 1,000 MG/100 ML VIAL IV PRN ×3 (00:02→18:15)
[2021-05-08] MEDS: Ampicillin/Sulbactam 1.5 GM in Sodium Chloride 0.9% 100 ML IVPB SCH (04:09)
[2021-05-08] MEDS: Metoprolol Tartrate 5 MG/5 ML VIAL IVP SCH ×3 (04:09→20:06)
[2021-05-08] MEDS: Amiodarone In Dextrose 200 ML IVPB SCH ×2 (04:14→16:12)
[2021-05-08 04:30] LABS: Anion Gap 10 mmol/L (10-20); BUN (Urea Nitrogen) 34 mg/dL (9.8-20.1); Calc. Creatinine Clearance 95 mL/min (70-130); Carbon Dioxide 25 mmol/L (23-31); Chloride 111 mmol/L (98-107); Glucose 122 mg/dL (83-110); Potassium 3.9 mmol/L (3.5-5.1); Sodium 142 mmol/L (136-145)
[2021-05-08 04:48] LABS: #Monocytes 0.7 10x3/uL (0.0-1.1); #Neutrophils 6.3 10x3/uL (1.5-8.4); %Basophils 0.1 % (0.0-2.0); %Lymphocytes 12.2 % (18.0-47.0); %Neutrophils 77.8 % (40.0-75.0); Hemoglobin 9.7 g/dL (12.0-15.5); Mean Corpuscular HGB CONC 30.4 g/dL (32.0-36.0); Mean Corpuscular Hemoglobin 28.2 pg (27.0-33.0); Mean Corpuscular Volume 92.7 fl (81.6-98.3); Mean Platelet Volume 11.7 fl (7.4-10.4); Platelet Count 154 10x3/uL (150-450); RBC Distribution Width 16.9 % (11.5-14.5); Red Blood Cell (RBC) Count 3.44 10x6/uL (3.90-5.03); White Blood Cell (WBC) Count 8.1 10x3/uL (3.5-10.5)
[2021-05-08 07:53] LABS: Actual Bicarbonate (HCO3a) 24.4 mEq/L (22-28); Base Excess (BEa) 0.1 mEq/L (-2.0 to +3.0); CO2 Tension 38.1 mmHg (35.0-45.0); Calcium, Ionized (arterial) 1.17 mmol/L (1.12-1.30); Carboxyhemoglobin (COHb) 0.3 gm% (0.0-3.0); Hemoglobin (Hb) 10.6 g/dL (12.0-16.0); O2 Tension (PaO2), arterial 77.9 mmHg (> 70.0); Potassium - ABG Lab 3.9 mmol/L (3.70-5.30); Puncture Site LRA; pH, Arterial 7.42 (7.35-7.45)
[2021-05-08 07:56] LABS: ALV-art Gradient 230.975 mmHg (0-20)
[2021-05-08] MEDS: Pantoprazole 40 MG VIAL IVP SCH (08:34)
[2021-05-08] MEDS: Aspirin 300 MG Suppository PR SCH (08:34)
[2021-05-08] MEDS: Aspirin Chewable 81 MG TAB PO SCH (08:36)
[2021-05-08] MEDS: guaiFENesin ER 600 MG TAB PO SCH ×2 (08:36→20:06)
[2021-05-08] MEDS: Heparin 5,000 UNITS/ML VIAL SC SCH (08:37)
[2021-05-08] MEDS: Lidocaine 5% Patch TD SCH (08:38)
[2021-05-08] MEDS ORDERED: Amino Acids 4.25 %/Dextrose 5% 2,000 ML BAG IV SCH (09:00)
[2021-05-08] MEDS ORDERED: Albumin 25% 25 GM/100 ML BOT IVPB SCH (09:30)
[2021-05-08] MEDS ORDERED: Furosemide 40 MG/4 ML VIAL SLOW IVP SCH (09:45)
[2021-05-08] MEDS: Cefepime 2 GM in Sodium Chloride 0.9% 100 ML IVPB SCH ×2 (09:49→17:40)
[2021-05-08] MEDS ORDERED: Apixaban 5 MG TAB PO SCH ×4 (10:30→21:00)
[2021-05-08] MEDS: Amino Acids 4.25 %/Dextrose 5% 2,000 ML IV SCH (13:56)
[2021-05-08] MEDS: Transdermal Patch Removal TOP SCH (20:07)
[2021-05-09] MEDS: Cefepime 2 GM in Sodium Chloride 0.9% 100 ML IVPB SCH (02:21)
[2021-05-09] MEDS: Propofol 1,000 MG/100 ML VIAL IV PRN (03:19)
[2021-05-09] MEDS: Metoprolol Tartrate 5 MG/5 ML VIAL IVP SCH ×3 (03:19→20:42)
[2021-05-09 03:45] LABS: #Monocytes 0.6 10x3/uL (0.0-1.1); #Neutrophils 7.9 10x3/uL (1.5-8.4); %Lymphocytes 11.2 % (18.0-47.0); %Monocytes 6.2 % (0.0-10.0); %Neutrophils 81.2 % (40.0-75.0); Hemoglobin 9.9 g/dL (12.0-15.5); Mean Corpuscular HGB CONC 31.1 g/dL (32.0-36.0); Mean Corpuscular Hemoglobin 28.7 pg (27.0-33.0); Mean Corpuscular Volume 92.2 fl (81.6-98.3); Mean Platelet Volume 11.5 fl (7.4-10.4); Platelet Count 146 10x3/uL (150-450); RBC Distribution Width 17.2 % (11.5-14.5); Red Blood Cell (RBC) Count 3.45 10x6/uL (3.90-5.03); White Blood Cell (WBC) Count 9.7 10x3/uL (3.5-10.5)
[2021-05-09 04:31] LABS: ALT (SGPT) 9 U/L (8-55); AST (SGOT) 8 U/L (5-34); Albumin 2.7 g/dL (3.4-4.8); Alkaline Phosphatase 75 U/L (40-110); Anion Gap 11 mmol/L (10-20); BUN (Urea Nitrogen) 40 mg/dL (9.8-20.1); Bilirubin, Total 0.6 mg/dL (0.2-1.2); Calc. Creatinine Clearance 98 mL/min (70-130); Calcium 7.8 mg/dL (7.8-10.44); Carbon Dioxide 24 mmol/L (23-31); Chloride 107 mmol/L (98-107); Globulin 1.9 g/dL (2.4-3.5); Glucose 115 mg/dL (83-110); Potassium 3.8 mmol/L (3.5-5.1); Protein, Total 4.6 g/dL (5.8-8.1); Sodium 138 mmol/L (136-145)
[2021-05-09] MEDS: Amiodarone In Dextrose 200 ML IVPB SCH ×2 (04:46→17:16)
[2021-05-09 08:05] LABS: Actual Bicarbonate (HCO3a) 23.4 mEq/L (22-28); Base Excess (BEa) -0.5 mEq/L (-2.0 to +3.0); CO2 Tension 35.9 mmHg (35.0-45.0); Calcium, Ionized (arterial) 1.13 mmol/L (1.12-1.30); Carboxyhemoglobin (COHb) 0.4 gm% (0.0-3.0); Hemoglobin (Hb) 11.1 g/dL (12.0-16.0); O2 Tension (PaO2), arterial 87.3 mmHg (> 70.0); Potassium - ABG Lab 3.7 mmol/L (3.70-5.30); Puncture Site LRA; pH, Arterial 7.43 (7.35-7.45)
[2021-05-09 08:07] LABS: ALV-art Gradient 153.025 mmHg (0-20)
[2021-05-09] MEDS ORDERED: guaiFENesin ER 600 MG TAB ONE (08:25)
[2021-05-09] MEDS: Aspirin Chewable 81 MG TAB PO SCH (08:45)
[2021-05-09] MEDS: guaiFENesin ER 600 MG TAB PO SCH ×2 (08:45→20:42)
[2021-05-09] MEDS: Apixaban 5 MG TAB PO SCH ×2 (08:46→20:42)
[2021-05-09] MEDS: Pantoprazole 40 MG VIAL IVP SCH (08:46)
[2021-05-09] MEDS: Lidocaine 5% Patch TD SCH (08:47)
[2021-05-09] MEDS: Aspirin 300 MG Suppository PR SCH (11:31)
[2021-05-09] MEDS: Amino Acids 4.25 %/Dextrose 5% 2,000 ML IV SCH (14:20)
[2021-05-09] MEDS: Furosemide 40 MG/4 ML VIAL SLOW IVP SCH (14:20)
[2021-05-09] MEDS: Transdermal Patch Removal TOP SCH (22:33)
[2021-05-10] MEDS: Metoprolol Tartrate 5 MG/5 ML VIAL IVP SCH ×4 (03:25→21:42)
[2021-05-10 04:03] LABS: #Monocytes 0.8 10x3/uL (0.0-1.1); #Neutrophils 8.1 10x3/uL (1.5-8.4); %Basophils 0.1 % (0.0-2.0); %Eosinophils 0.1 % (0.0-6.0); %Lymphocytes 8.9 % (18.0-47.0); %Monocytes 7.8 % (0.0-10.0); %Neutrophils 81.2 % (40.0-75.0); Hemoglobin 10.4 g/dL (12.0-15.5); Mean Corpuscular Hemoglobin 29.3 pg (27.0-33.0); Mean Corpuscular Volume 94.4 fl (81.6-98.3); Mean Platelet Volume 11.6 fl (7.4-10.4); Platelet Count 148 10x3/uL (150-450); RBC Distribution Width 17.1 % (11.5-14.5); Red Blood Cell (RBC) Count 3.55 10x6/uL (3.90-5.03)
[2021-05-10 04:20] LABS: Anion Gap 12 mmol/L (10-20); BUN (Urea Nitrogen) 47 mg/dL (9.8-20.1); Calc. Creatinine Clearance 99 mL/min (70-130); Calcium 8.3 mg/dL (7.8-10.44); Carbon Dioxide 24 mmol/L (23-31); Chloride 105 mmol/L (98-107); Glucose 108 mg/dL (83-110); Potassium 3.9 mmol/L (3.5-5.1); Sodium 137 mmol/L (136-145)
[2021-05-10] MEDS: Furosemide 40 MG/4 ML VIAL SLOW IVP SCH (05:00)
[2021-05-10] MEDS: Amiodarone In Dextrose 200 ML IVPB SCH ×2 (05:00→18:11)
[2021-05-10] MEDS: Aspirin Chewable 81 MG TAB PO SCH (09:05)
[2021-05-10] MEDS: Pantoprazole 40 MG VIAL IVP SCH (09:05)
[2021-05-10] MEDS: Apixaban 5 MG TAB PO SCH ×2 (09:05→21:20)
[2021-05-10] MEDS: Lidocaine 5% Patch TD SCH (09:05)
[2021-05-10] MEDS: guaiFENesin ER 600 MG TAB PO SCH ×2 (09:05→21:20)
[2021-05-10] MEDS: Aspirin 300 MG Suppository PR SCH (09:07)
[2021-05-10] MEDS: Acetylcysteine 20% 200 MG/ML 30 ML VIAL INH SCH ×3 (11:37→23:20)
[2021-05-10] MEDS: Amino Acids 4.25 %/Dextrose 5% 2,000 ML IV SCH (14:00)
[2021-05-10] MEDS: Transdermal Patch Removal TOP SCH (22:31)
[2021-05-11 04:27] LABS: Phosphorus 2.7 mg/dL (2.3-4.7)
[2021-05-11 04:37] LABS: Anion Gap 12 mmol/L (10-20); BUN (Urea Nitrogen) 49 mg/dL (9.8-20.1); Calc. Creatinine Clearance 93 mL/min (70-130); Calcium 8.3 mg/dL (7.8-10.44); Carbon Dioxide 25 mmol/L (23-31); Chloride 104 mmol/L (98-107); Glucose 113 mg/dL (83-110); Magnesium 1.6 mg/dL (1.6-2.6); Potassium 3.8 mmol/L (3.5-5.1); Sodium 137 mmol/L (136-145)
[2021-05-11 04:39] LABS: #Monocytes 0.7 10x3/uL (0.0-1.1); #Neutrophils 6.2 10x3/uL (1.5-8.4); %Basophils 0.1 % (0.0-2.0); %Lymphocytes 10.5 % (18.0-47.0); %Monocytes 8.9 % (0.0-10.0); Hemoglobin 10.2 g/dL (12.0-15.5); Mean Corpuscular HGB CONC 29.9 g/dL (32.0-36.0); Mean Corpuscular Hemoglobin 28.5 pg (27.0-33.0); Mean Corpuscular Volume 95.3 fl (81.6-98.3); Mean Platelet Volume 12.1 fl (7.4-10.4); Platelet Count 153 10x3/uL (150-450); RBC Distribution Width 16.9 % (11.5-14.5); Red Blood Cell (RBC) Count 3.58 10x6/uL (3.90-5.03); White Blood Cell (WBC) Count 7.9 10x3/uL (3.5-10.5)
[2021-05-11] MEDS: Metoprolol Tartrate 5 MG/5 ML VIAL IVP SCH ×3 (04:55→21:22)
[2021-05-11 04:56] LABS: Anisocytosis SLIGHT = 6-15 cells (100X) (0-5/hpf); Platelet Morphology Comment Appears Adequate
[2021-05-11] MEDS ORDERED: Magnesium 2 GM/50 ML 2 GM in Premix Bag 1 BAG IVPB SCH (06:15)
[2021-05-11] MEDS ORDERED: Potassium Chloride 20 MEQ TAB PO SCH (06:45)
[2021-05-11] MEDS: Acetylcysteine 20% 200 MG/ML 30 ML VIAL INH SCH ×3 (07:28→19:45)
[2021-05-11] MEDS ORDERED: Furosemide 40 MG TAB PO SCH (07:30)
[2021-05-11] MEDS: Magnesium 2 GM/50 ML 2 GM in Premix Bag 1 BAG IVPB SCH ×2 (08:09→09:53)
[2021-05-11] MEDS: Amiodarone In Dextrose 200 ML IVPB SCH ×2 (08:09→22:10)
[2021-05-11] MEDS: guaiFENesin ER 600 MG TAB PO SCH ×2 (08:40→21:18)
[2021-05-11] MEDS: Pantoprazole 40 MG VIAL IVP SCH (08:40)
[2021-05-11] MEDS: Lidocaine 5% Patch TD SCH (08:40)
[2021-05-11] MEDS: Aspirin Chewable 81 MG TAB PO SCH (08:40)
[2021-05-11] MEDS: Apixaban 5 MG TAB PO SCH ×2 (08:40→21:19)
[2021-05-11] MEDS ORDERED: Morphine IR Tab 15 MG TAB PO PRN (13:21)
[2021-05-11] MEDS: Transdermal Patch Removal TOP SCH (21:22)
[2021-05-12] MEDS: Acetylcysteine 20% 200 MG/ML 30 ML VIAL INH SCH ×5 (03:25→23:25)
[2021-05-12] MEDS: Metoprolol Tartrate 5 MG/5 ML VIAL IVP SCH ×3 (03:40→19:51)
[2021-05-12 04:12] LABS: #Monocytes 0.8 10x3/uL (0.0-1.1); #Neutrophils 5.9 10x3/uL (1.5-8.4); %Basophils 0.3 % (0.0-2.0); %Lymphocytes 9.8 % (18.0-47.0); %Monocytes 10.6 % (0.0-10.0); %Neutrophils 77.7 % (40.0-75.0); Hemoglobin 10.7 g/dL (12.0-15.5); Mean Corpuscular HGB CONC 29.6 g/dL (32.0-36.0); Mean Corpuscular Hemoglobin 28.3 pg (27.0-33.0); Mean Corpuscular Volume 95.8 fl (81.6-98.3); Mean Platelet Volume 11.8 fl (7.4-10.4); Platelet Count 192 10x3/uL (150-450); RBC Distribution Width 16.8 % (11.5-14.5); Red Blood Cell (RBC) Count 3.78 10x6/uL (3.90-5.03); White Blood Cell (WBC) Count 7.5 10x3/uL (3.5-10.5)
[2021-05-12 04:29] LABS: Anion Gap 12 mmol/L (10-20); BUN (Urea Nitrogen) 46 mg/dL (9.8-20.1); Calc. Creatinine Clearance 95 mL/min (70-130); Calcium 8.8 mg/dL (7.8-10.44); Carbon Dioxide 25 mmol/L (23-31); Chloride 104 mmol/L (98-107); Glucose 99 mg/dL (83-110); Magnesium 2.1 mg/dL (1.6-2.6); Phosphorus 2.6 mg/dL (2.3-4.7); Potassium 4.2 mmol/L (3.5-5.1); Sodium 137 mmol/L (136-145)
[2021-05-12 04:47] LABS: Anisocytosis SLIGHT = 6-15 cells (100X) (0-5/hpf); Platelet Morphology Comment Appears Adequate
[2021-05-12 07:38] VITALS: BMI 36.2
[2021-05-12] MEDS: Aspirin Chewable 81 MG TAB PO SCH (08:29)
[2021-05-12] MEDS: Furosemide 40 MG TAB PO SCH (08:29)
[2021-05-12] MEDS: Apixaban 5 MG TAB PO SCH ×2 (08:29→20:44)
[2021-05-12] MEDS: guaiFENesin ER 600 MG TAB PO SCH ×2 (08:29→20:44)
[2021-05-12] MEDS: Pantoprazole 40 MG VIAL IVP SCH (08:29)
[2021-05-12] MEDS: Lidocaine 5% Patch TD SCH (08:31)
[2021-05-12] MEDS: Amiodarone In Dextrose 200 ML IVPB SCH ×2 (09:06→20:44)
[2021-05-12] MEDS ORDERED: Senokot 8.6 MG TAB PO SCH (13:45)
[2021-05-12] MEDS ORDERED: Polyethylene Glycol 3350 17 GM Packet PO SCH (14:00)
[2021-05-12] MEDS: FLU VACC QS2021-22(65YR UP)/PF 240 MCG/0.7 ML SYRINGE IM ONE (17:25)
[2021-05-12] MEDS: Transdermal Patch Removal TOP SCH (21:04)
[2021-05-13 03:26] LABS: #Monocytes 1.1 10x3/uL (0.0-1.1); #Neutrophils 7.6 10x3/uL (1.5-8.4); %Basophils 0.2 % (0.0-2.0); %Eosinophils 0.1 % (0.0-6.0); %Lymphocytes 7.3 % (18.0-47.0); %Monocytes 11.7 % (0.0-10.0); Hemoglobin 10.8 g/dL (12.0-15.5); Mean Corpuscular HGB CONC 30.4 g/dL (32.0-36.0); Mean Corpuscular Hemoglobin 28.6 pg (27.0-33.0); Mean Corpuscular Volume 93.9 fl (81.6-98.3); Mean Platelet Volume 11.7 fl (7.4-10.4); Platelet Count 204 10x3/uL (150-450); RBC Distribution Width 17.2 % (11.5-14.5); Red Blood Cell (RBC) Count 3.78 10x6/uL (3.90-5.03); White Blood Cell (WBC) Count 9.5 10x3/uL (3.5-10.5)
[2021-05-13 03:43] LABS: Anion Gap 10 mmol/L (10-20); BUN (Urea Nitrogen) 40 mg/dL (9.8-20.1); Calc. Creatinine Clearance 92 mL/min (70-130); Calcium 8.6 mg/dL (7.8-10.44); Carbon Dioxide 29 mmol/L (23-31); Chloride 103 mmol/L (98-107); Glucose 98 mg/dL (83-110); Magnesium 1.9 mg/dL (1.6-2.6); Phosphorus 2.9 mg/dL (2.3-4.7); Potassium 4.1 mmol/L (3.5-5.1); Sodium 138 mmol/L (136-145)
[2021-05-13] MEDS: Metoprolol Tartrate 5 MG/5 ML VIAL IVP SCH (05:04)
[2021-05-13] MEDS ORDERED: Magnesium 2 GM/50 ML 2 GM in Premix Bag 1 BAG IVPB SCH (05:15)
[2021-05-13] MEDS: guaiFENesin ER 600 MG TAB PO SCH (08:22)
[2021-05-13] MEDS: Pantoprazole 40 MG VIAL IVP SCH (08:23)
[2021-05-13] MEDS: Furosemide 40 MG TAB PO SCH (08:23)
[2021-05-13] MEDS: Aspirin Chewable 81 MG TAB PO SCH (08:23)
[2021-05-13] MEDS: Apixaban 5 MG TAB PO SCH (08:23)
[2021-05-13] MEDS: Lidocaine 5% Patch TD SCH (08:47)
[2021-05-13] MEDS ORDERED: Polyethylene Glycol 3350 17 GM Packet PO SCH (09:00)
[2021-05-13] MEDS: Amiodarone In Dextrose 200 ML IVPB SCH (09:46)
[2021-05-13 10:38] VITALS: TEMP 97.6
[2021-05-13 14:03] VITALS: BP 108/69
[2021-05-13] MEDS ORDERED: Benzonatate 100 MG CAP PO SCH (15:00)
== END 2021-05-13 19:05 | disposition expired | DRG 208 ==
LOC: CSHERS 08:52 → SUATTDRO 08:52 → CSHIMCU 11:35
PROVIDERS: ADMIT Family Medicine; ATTEND Family Medicine
PROC: 5A1935Z Respiratory Ventilation, Less than 24 Consecutive Hours (ICD-10-PCS; principal; 2021-04-29)
PROC: 5A12012 Performance of Cardiac Output, Single, Manual (ICD-10-PCS; 2021-04-29)
PROC: 5A2204Z Restoration of Cardiac Rhythm, Single (ICD-10-PCS; 2021-04-29)
PROC: 02HV33Z Insertion of Infusion Device into Superior Vena Cava, Percutaneous Approach (ICD-10-PCS; 2021-04-29)
PROC: 0BH17EZ Insertion of Endotracheal Airway into Trachea, Via Natural or Artificial Opening (ICD-10-PCS; 2021-04-29)
PROC: 3E033XZ Introduction of Vasopressor into Peripheral Vein, Percutaneous Approach (ICD-10-PCS; 2021-04-29)
PROC: 5A09457 Assistance with Respiratory Ventilation, 24-96 Consecutive Hours, Continuous Positive Airway Pressure (ICD-10-PCS; 2021-05-03)
PROC: 5A1945Z Respiratory Ventilation, 24-96 Consecutive Hours (ICD-10-PCS; 2021-05-07)
PROC: 0BCB8ZZ Extirpation of Matter from Left Lower Lobe Bronchus, Via Natural or Artificial Opening Endoscopic (ICD-10-PCS; 2021-05-07)
PROC: 0BC68ZZ Extirpation of Matter from Right Lower Lobe Bronchus, Via Natural or Artificial Opening Endoscopic (ICD-10-PCS; 2021-05-07)
DX: J69.0 Pneumonitis due to inhalation of food and vomit (principal); J96.01 Acute respiratory failure with hypoxia; I50.31 Acute diastolic (congestive) heart failure; N17.0 Acute kidney failure with tubular necrosis; Z51.5 Encounter for palliative care; Z66 Do not resuscitate; I21.4 Non-ST elevation (NSTEMI) myocardial infarction; J98.11 Atelectasis; E87.0 Hyperosmolality and hypernatremia; E87.1 Hypo-osmolality and hyponatremia; S27.322A Contusion of lung, bilateral, initial encounter; Z20.822 Contact with and (suspected) exposure to COVID-19; D53.9 Nutritional anemia, unspecified; R57.0 Cardiogenic shock; N28.1 Cyst of kidney, acquired; I11.0 Hypertensive heart disease with heart failure; I48.0 Paroxysmal atrial fibrillation; E27.8 Other specified disorders of adrenal gland; I49.01 Ventricular fibrillation; T17.990A Other foreign object in respiratory tract, part unspecified in causing asphyxiation, initial encounter; I27.20 Pulmonary hypertension, unspecified; E88.09 Other disorders of plasma-protein metabolism, not elsewhere classified; L89.151 Pressure ulcer of sacral region, stage 1; X58.XXXA Exposure to other specified factors, initial encounter; E66.9 Obesity, unspecified; K59.00 Constipation, unspecified; J15.6 Pneumonia due to other Gram-negative bacteria; Z86.73 Personal history of transient ischemic attack (TIA), and cerebral infarction without residual deficits; Z79.82 Long term (current) use of aspirin; Z79.899 Other long term (current) drug therapy; Z79.01 Long term (current) use of anticoagulants; Z68.35 Body mass index [BMI] 35.0-35.9, adult
CPT/HCPCS: 31500; 36415; 36556; 36600; 51702; 70450; 71045; 71260; 72125; 74018; 74177; 76770; 80048; 80053; 80061; 80306; 81001; 82140; 82553; 82570; 82805; 83036; 83605; 83735; 83880; 84100; 84145; 84300; 84439; 84443; 84484; 85025; 85610; 85730; 86850; 86870; 86900; 86901; 86905; 86922; 87040; 87070; 87077; 87081; 87086; 87186; 87449; 93005; 93010; 93306; 93970; 94002; 94003; 94640; 94660; 94667; 94668; 94669; 94760; 96365; 96366; 96368; 96375; 96376; C9113; J0132; J0153; J0171; J0282; J0295; J0692; J1160; J1644; J1940; J1956; J2001; J2250; J2270; J2543; J2704; J3010; J3370; J3475; J3490; J7050; J7120; J7620; P9047; S0028; U0002; U0003; U0005